=== PATIENT | female | born 1995 | race Caucasian/White ===

== ENCOUNTER 2021-01-13 08:24 | Emergency (ER) | payer MEDICAID ==
[2021-01-13] MEDS ORDERED: Acetaminophen 325 MG Tab PO ONE (09:02)
[2021-01-13 09:15] VITALS: BP 128/66; PULSE 92
[2021-01-13 09:34] LABS: ANION GAP 16.2 mEq/L (7-13); CHLORIDE,CL 103 mmol/L (98-107); SODIUM,NA 145 mmol/L (136-145)
--- NOTE | 2021-01-13 09:46 | CR ---
PROCEDURE INFORMATION: Exam: XR Abdomen Exam date and time: 01/13/2021 9:19 AM Age: 25 years old Clinical indication: Constipation; Abdominal pain; Generalized; Additional info: Abdominal pain, constipation TECHNIQUE: Imaging protocol: XR of the abdomen. Views: Frontal supine view of the abdomen. 1 View. COMPARISON: CR Abdomen 2V AP Flat Upright 01/07/2019 8:57 PM FINDINGS: Gastrointestinal tract: Normal. No bowel dilation. Bones/joints: Unremarkable. IMPRESSION: No acute findings.
[2021-01-13] MEDS ORDERED: Lactulose Soln 10 GM/15 ML 30 ML UD Cup PO ONE (09:59)
[2021-01-13] MEDS ORDERED: Bisacodyl 5 MG Tab PO ONE (09:59)
--- NOTE | 2021-01-13 10:03 | EDM.PDOC ---
Scribed by Lorie Sullivan 01/13/21 0954 for Genevieve James MD ED HPI GENERAL MEDICAL PROBLEM - General Chief Complaint: Abdominal Pain Stated Complaint: MIGHT HAVE BOWEL OBSTRUCTION, HISTORY OF IT Time Seen by Provider: 01/13/21 08:45 Source of Information: Reports: Patient, Family History Limitations: Reports: No Limitations - History of Present Illness INITIAL COMMENTS - FREE TEXT/NARRATIVE: 25 y/o F c/o 5 days of lower abd pn and constipation. Pt has Downs Syndrome and is here with her mother. Mother states pt has had some watery diarrhea but no real bowel movement for 5 days. Mom has tried mag citrate and other over the counter meds with no relief in symptoms. The abd pn is sharp, constant, worse lying flat, and is relieved somewhat when pt sits up or has a small watery bowel movement. Has had a similar episode 1-2 years ago and was given an enema which relieved the problem. Mom states pt is on her period at this time which has complicated her ability to monitor pt urine output and quality of the urine. She also reports a decrease in appetite over the last day. Reportedly pt had a fever of 100.8 yesterday for which mom gave pt tylenol. Denies chils, cough, cp, db, extremity pn, drugs, etoh. Onset: Gradual Duration: Day(s): Location: Reports: Abdomen Quality: Reports: Sharp Severity: Moderate Improves with: Reports: Other (sitting up) Worsens with: Reports: Other (lying flat) Associated Symptoms: Reports: Loss of Appetite Bilateral Abdomen Pain Score (Numeric/FACES): 10 - Related Data Allergies Allergy/AdvReac Type Severity Reaction Status Date / Time cephalexin [Cephalexin] Allergy Hives Verified 01/07/19 20:49 Penicillins Allergy Hives Verified 01/07/19 20:49 Past Medical History HEENT History: Reports: Other (See Below) Other HEENT History: has had tubes placed in ears multiple times Cardiovascular History: Reports: Other (See Below) Other Cardiovascular History: mother states pt had heart surgery "to close a valve when she was young" Respiratory History: Reports: Pneumonia, Recurrent Other Neuro History: Downs syndrome - Past Surgical History Other HEENT Surgeries/Procedures: ear surgery Other Cardiovascular Surgeries/Procedures: heart surgery Social & Family History - Family History Family Medical History: No Pertinent Family History - Caffeine Use Caffeine Use: Reports: None - Living Situation & Occupation Living situation: Reports: Single, with Family Occupation: Student ED ROS GENERAL - Review of Systems Review Of Systems: Comprehensive ROS is negative, except as noted in HPI. ED EXAM, GI/ABD - Physical Exam Exam: See Below Exam Limited By: No Limitations General Appearance: Alert Head: Atraumatic, Normocephalic Neck: Normal Inspection, Supple, Non-Tender, Full Range of Motion Respiratory/Chest: No Respiratory Distress, Lungs Clear, Normal Breath Sounds Cardiovascular: Normal Peripheral Pulses, Regular Rate, Rhythm GI/Abdominal Exam: Soft, Tender (tender to palpation over the lower quadrants. ) (Female) Exam: Deferred Rectal (Female) Exam: Deferred Back Exam: Normal Inspection, Full Range of Motion Extremities: Normal Inspection, Normal Range of Motion, Non-Tender, Normal Capillary Refill, No Pedal Edema Neurological: Alert, Oriented, Normal Cognition Psychiatric: Normal Affect, Normal Mood, Other (normal affect per mom) Skin Exam: Warm, Dry, Intact Course - Vital Signs Last Recorded V/S: Last Vital Signs Temp 98.0 F 01/13/21 08:42 Pulse 92 01/13/21 08:42 Resp 16 01/13/21 08:42 BP 128/66 01/13/21 08:42 Pulse Ox 99 01/13/21 08:42 - Orders/Labs/Meds Orders: Active Orders 24 hr Category Date Time Status Lactulose [Cephulac] Med 01/13/21 09:59 Once 20 gm PO ONETIME ONE bisacodyL [Dulcolax] Med 01/13/21 09:59 Once 10 mg PO ONETIME ONE Labs: Laboratory Tests 01/13/21 01/13/21 Range/Units 09:11 09:11 WBC 8.3 (5.0-10.0) 10^3/uL RBC 4.86 (4.2-5.4) 10^6/uL Hgb 14.9 (12.0-16.0) g/dL Hct 45.1 (37.0-47.0) % MCV 92.8 (80-100) fL MCH 30.7 (27.0-34.0) pg MCHC 33.0 (33.0-35.0) g/dL Plt Count 302 (150-450) 10^3/uL Neut % (Auto) 54.1 (42.2-75.2) % Lymph % (Auto) 39.4 (20.5-50.1) % [place] % (Auto) 5.6 (2-8) % Eos % (Auto) 0.7 L (1.0-3.0) % Baso % (Auto) 0.2 (0.0-1.0) % Sodium 145 (136-145) mmol/L Potassium 4.2 (3.5-5.1) mmol/L Chloride 103 (98-107) mmol/L Carbon Dioxide 30 (21-32) mmol/L Anion Gap 16.2 H (7-13) mEq/L BUN 11 (7-18) mg/dL Creatinine 0.96 (0.55-1.02) mg/dL Est Cr Clr Drug Dosing 77.36 mL/min Estimated GFR (MDRD) > 60 BUN/Creatinine Ratio 11.5 (No establ ref range) Glucose 110 H (70-99) mg/dL Calcium 8.7 (8.5-10.1) mg/dL Total Bilirubin 1.5 H (0.2-1.0) mg/dL AST 15 (15-37) U/L ALT 26 (14-59) U/L Alkaline Phosphatase 64 (46-116) U/L Total Protein 7.5 (6.4-8.2) g/dL Albumin 3.6 (3.4-5.0) g/dL Globulin 3.9 Albumin/Globulin Ratio 0.9 Meds: Medications Discontinued Medications Generic Name Dose Route Start Last Admin Trade Name Freq PRN Reason Stop Dose Admin Acetaminophen 650 mg 01/13/21 09:02 01/13/21 09:49 Acetaminophen 325 Mg Tab PO 01/13/21 09:03 650 mg NOW ONE Administration Bisacodyl 10 mg 01/13/21 09:59 Bisacodyl 5 Mg Tab PO 01/13/21 10:00 ONETIME ONE Lactulose 20 gm 01/13/21 09:59 Lactulose Soln 10 Gm/15 Ml 30 Ml Ud Cup PO 01/13/21 10:00 ONETIME ONE - Radiology Interpretation Free Text/Narrative:: [facility] [place] [employer] Final Radiology Report Call: [phone] assistance Online chat: [email or web address] [email or web address] Name: RADHA DIA Age: 25Years F Date: 01/13/2021 SSN: -- : [id number] Study: CR ABDOMEN 1V FLAT Requesting Physician: GENEVIEVE JAMES Images: 2 Addl Studies: Provided Clinical History: abdominal pain, constipation Contrast: Contrast Medium: Contrast Amount: Contrast Method: CONFIDENTIALITY STATEMENT This report is intended only for use by the referring physician, and only in accordance with law. If you received this in error, call [phone]. Page 1 of 1 PROCEDURE INFORMATION: Exam: XR Abdomen Exam date and time: 01/13/2021 9:19 AM Age: 25 years old Clinical indication: Constipation; Abdominal pain; Generalized; Additional info: Abdominal pain, constipation TECHNIQUE: Imaging protocol: XR of the abdomen. Views: Frontal supine view of the abdomen. 1 View. COMPARISON: CR Abdomen 2V AP Flat Upright 01/07/2019 8:57 PM FINDINGS: Gastrointestinal tract: Normal. No bowel dilation. Bones/joints: Unremarkable. IMPRESSION: No acute findings. Thank you for allowing us to participate in the care of your patient. Dictated and Authenticated by: Jair Enriquez MD 01/13/2021 9:45 AM Central Time ([place] & [place]) Departure - Departure Time of Disposition: 10:00 Disposition: Home, Self-Care 01 Condition: Good Clinical Impression: Constipation Qualifiers: Constipation type: other constipation type Qualified Code(s): K59.09 - Other constipation - Discharge Information *PRESCRIPTION DRUG MONITORING PROGRAM REVIEWED*: Not Applicable *COPY OF PRESCRIPTION DRUG MONITORING REPORT IN PATIENT LUCÍA: Not Applicable Instructions: Constipation, Adult, [id number], Abdominal Pain, Adult, [id number] Forms: ED Department Discharge Additional Instructions: Drink plenty of water or juice. Expect some abdominal cramping as the medication works. You may experience some diarrhea while the medication works, but it should not last more than a day or so. Follow up in clinic if any further concerns. Sepsis Event Note (ED) - Focused Exam Vital Signs: Vital Signs Temp Pulse Resp BP Pulse Ox 01/13/21 08:42 98.0 F 92 16 128/66 99 - My Orders Last 24 Hours: My Active Orders 01/13/21 09:59 Lactulose [Cephulac] 20 gm PO ONETIME ONE bisacodyL [Dulcolax] 10 mg PO ONETIME ONE - Assessment/Plan Last 24 Hours: My Active Orders 01/13/21 09:59 Lactulose [Cephulac] 20 gm PO ONETIME ONE bisacodyL [Dulcolax] 10 mg PO ONETIME ONE I have read and agree with the documentation that has been completed regarding this visit. By signing this record, I attest that the documentation was completed in my physical presence and is an accurate record of the encounter.
== END 2021-01-13 10:20 | disposition home or self-care (01) ==
LOC: DL.ED 08:24
DX: K59.09 Other constipation (principal); Z88.0 Allergy status to penicillin; Z88.1 Allergy status to other antibiotic agents
CPT/HCPCS: 36415; 74018; 80053; 85025; 99283; 99283-25; A9270-GY